=== PATIENT | female | born 1970 | race Asian ===

== ENCOUNTER 2016-10-10 22:00 | Emergency (ER) | payer SELFPAY ==
[2016-10-10 23:24] VITALS: BP 114/77
--- NOTE | 2016-10-11 00:10 | UC ---
Skin Complaint HPI - HPI Summary HPI Summary: NOTICED REDNESS AND SWELLING RIGHT MEDIAL ANKLE TODAY. TRIPPED YESTERDAY AND WONDERS IF SHE SPRAINED HER ANKLE BUT PAIN IS MINIMAL AND NO PAIN WHEN WALKING. ALSO THINKS SHE MAY HAVE HAD A BUG BITE. NO FEVERS. IS HERE FROM [place] VISITING HER SISTER. - History of Current Complaint Chief Complaint: UCLowerExtremity Time Seen by Provider: 10/10/16 23:18 Stated Complaint: POSS BUG BITE,ANKLE SWELLING Hx Obtained From: Patient, Family/Broadcast Systems Engineer - SISTER Hx Last Menstrual Period: 10/03/16 Onset/Duration: Gradual Onset, Lasting Hours, Still Present Timing: Constant Onset Severity: Mild Current Severity: Mild Pain Intensity: 2 Pain Scale Used: 0-10 Numeric Location: Discrete - RIGHT MEDIAL ANKLE Character: Pain, Redness Aggravating: Touch Alleviating: Nothing Associated Signs & Symptoms: Positive: Tenderness - Allergy/Home Medications Allergies/Adverse Reactions: Allergies Allergy/AdvReac Type Severity Reaction Status Date / Time No Known Allergies Allergy Verified 10/10/16 23:14 Review of Systems Constitutional: Negative Skin: Other - ERYTHEMA Respiratory: Negative Cardiovascular: Negative Gastrointestinal: Negative Musculoskeletal: Edema All Other Systems Reviewed And Are Negative: Yes PMH/Surg Hx/FS Hx/Imm Hx Previously Healthy: Yes - Surgical History Surgical History: None - Family History Known Family History: Positive: Hypertension - Social History Alcohol Use: None Substance Use Type: None Smoking Status (MU): Never Smoked Tobacco - Immunization History Most Recent Tetanus Shot: unsure Physical Exam Triage Information Reviewed: Yes Appearance: Well-Appearing, No Pain Distress, Well-Nourished Vital Signs: Initial Vital Signs Temp 98.6 F 10/10/16 23:15 Pulse 73 10/10/16 23:15 Resp 16 10/10/16 23:15 BP 114/77 10/10/16 23:15 Pulse Ox 99 10/10/16 23:15 Vital Signs Reviewed: Yes Eyes: Positive: Conjunctiva Clear ENT: Positive: Hearing grossly normal Neck: Positive: Supple Respiratory: Positive: No respiratory distress, No accessory muscle use Cardiovascular: Positive: Pulses Normal Abdomen Description: Positive: Soft Musculoskeletal: Positive: ROM Intact, Edema @ - RIGHT MEDIAL ANKLE, Other: - NO GAIT DISTURBANCE Neurological: Positive: Alert Psychological: Positive: Age Appropriate Behavior Skin: Positive: Other - 9CM X 6CM AREA OF ERYTHEMA RIGHT MEDIAL ANKLE. SPFL EXCORIATION WITHIN AREA OF ERYTHEMA Course/Dx - Course Course Of Treatment: NO DIFFICULTY WALKING OR PAIN WITH RANGE OF MOTION. CLINICALLY NOT C/W SPRAIN. SLIGHTLY TENDER WITH PALPATION. SPFL EXCORIATION WITHIN AREA OF ERYTHEMA. WILL TX CELLULITIS. - Diagnoses Provider Diagnoses: CELLULITIS Discharge - Discharge Plan Condition: Stable Disposition: HOME Prescriptions: Cephalexin CAP* [Keflex 500 CAP*] 1,000 mg PO BID #[id number] cap Patient Education Materials: Cellulitis (ED) Referrals: No Primary Care Phys,NOPCP [Primary Care Provider] - Additional Instructions: SEEK FOLLOW-UP HERE IF YOU DEVELOP SPREADING REDNESS OF THE SKIN, PURULENT DRAINAGE, FEVER, INCREASED PAIN OR ANY OTHER CONCERNING SYMPTOMS.
== END 2016-10-10 23:48 | disposition home or self-care (01) ==
LOC: UCEAST 22:00
DX: L03.115 Cellulitis of right lower limb (principal)
CPT/HCPCS: 99202; G0463